=== PATIENT | female | born 1975 | race American Indian/Alaskan Native ===

== ENCOUNTER 2017-10-02 15:18 | Emergency (ER) | payer SELFPAY ==
[2017-10-02 15:19] VITALS: BMI 48.4
[2017-10-02 16:03] VITALS: BP 157/110; PULSE 80; RESP 16; TEMP 98; O2SAT 100
--- NOTE | 2017-10-02 16:38 | ED PDOC ---
Arrival/HPI - General Chief Complaint: Lower Extremity Problem/Injury Time Seen by Provider: 10/02/17 15:33 Historian: Patient - History of Present Illness Narrative History of Present Illness (Text): 10/02/17 16:35 41yr old female presents today with a 2 month history of left 5th toe pain. pt states she jammed her toe about 2 months ago and has been having pain ever since. no fever/chills. denies numbness, weakness, tingling in the extremity. pt states "it doesnt look swollen or red, but it hurts". no medications taken for pain at home. no other complaints. Time/Duration: > month (2 months) Symptom Course: Unchanged Quality: Throbbing Severity Level: 5 Past Medical History - Provider Review Nursing Documentation Reviewed: Yes - Travel History Have you recently traveled outside [place] w/in the past 3 mons?: No - Infectious Disease Hx of Infectious Diseases: None - Tetanus Immunization Tetanus Immunization: Unknown - Past Medical History Past Medical History: No Previous - Cardiac Hx Cardiac Disorders: Yes Hx Hypertension: Yes - Pulmonary Hx Respiratory Disorders: No - Neurological Hx Neurological Disorder: Yes Hx Vertigo: Yes - HEENT Hx HEENT Disorder: No - Renal Hx Renal Disorder: No - Endocrine/Metabolic Hx Endocrine Disorders: No - Hematological/Oncological Hx Blood Disorders: No - Integumentary Hx Dermatological Disorder: No - Musculoskeletal/Rheumatological Hx Musculoskeletal Disorders: No - Gastrointestinal Hx Gastrointestinal Disorders: No - Genitourinary/Gynecological Hx Genitourinary Disorders: No - Psychiatric Hx Psychophysiologic Disorder: No Hx Substance Use: No - Past Surgical History Past Surgical History: No Previous - Surgical History Hx Section: Yes Hx Cholecystectomy: Yes Hx Hysterectomy: Yes (partial) Other/Comment: right oophorectomy - Anesthesia Hx Anesthesia: Yes Hx Anesthesia Reactions: No Hx Malignant Hyperthermia: No - Suicidal Assessment Feels Threatened In Home Enviroment: No Family/Social History - Physician Review Nursing Documentation Reviewed: Yes Family/Social History: Unknown Family HX Smoking Status: Light Smoker < 10 Cigarettes Daily Hx Alcohol Use: No Hx Substance Use: No Hx Substance Use Treatment: No Allergies/Home Meds Allergies/Adverse Reactions: Allergies No Known Allergies Allergy (Verified 10/02/17 16:00) Home Medications: Home Meds Medication Instructions Recorded Confirmed No Known Home Med 10/02/17 10/02/17 Review of Systems - Review of Systems Constitutional: absent: Fatigue, Fevers Respiratory: absent: SOB, Cough Cardiovascular: absent: Chest Pain, Palpitations Gastrointestinal: absent: Abdominal Pain, Nausea, Vomiting Musculoskeletal: Arthralgias Skin: absent: Rash, Pruritis Neurological: absent: Headache, Dizziness Psychiatric: absent: Anxiety, Depression Physical Exam Vital Signs Reviewed: Yes Vital Signs Temp Pulse Resp BP Pulse Ox 10/02/17 16:03 98.0 F 80 16 157/110 H 100 Temperature: Afebrile Blood Pressure: Hypertensive Pulse: Regular Respiratory Rate: Normal Appearance: Positive for: Well-Appearing, Non-Toxic, Comfortable Pain Distress: None Mental Status: Positive for: Alert and Oriented X 3 - Systems Exam Head: Present: Atraumatic Neck: Present: Normal Range of Motion Respiratory/Chest: Present: Clear to Auscultation, Good Air Exchange. No: Respiratory Distress, Accessory Muscle Use Cardiovascular: Present: Regular Rate and Rhythm, Normal S1, S2. No: Murmurs Lower Extremity: Present: NORMAL PULSES, Normal ROM, Tenderness (left foot; + ttp over 5th toe; no edema, no erythema; no ecchymosis; full rom of foot/toes. flat foot; cap refill <2. no dorsal foot tenderness. ), Neurovascularly Intact, Capillary Refill < 2 s. No: CALF TENDERNESS, Swelling, Erythema, Deformity, Temperature Abnormalties Neurological: Present: GCS=15, Speech Normal Skin: Present: Warm, Dry, Normal Color. No: Rashes Psychiatric: Present: Alert, Oriented x 3 Medical Decision Making ED Course and Treatment: 10/02/17 16:38 Patient is nontoxic well-appearing in no distress pt with hx of htn with elevated bp in er. XRAY TOE; ? fx middle phalanx 5th toe pt refused medications for pain. ELTON TAPE TOE I discussed all results in depth with the patient and advised follow-up with the primary care physician/orthopedist/deployment specialist within the next 2 days. I advised immediate return if symptoms worsen or persist or if new concerning symptoms develop. pt advised to f/u with PMD regarding elevated BP. Patient verbalizes understanding of discharge instructions and need for immediate followup. all aspects of this case were discussed the attending of record. IMPRESSION; FRACTURE, TOE tylenol every 4 hours as needed for pain Follow up with primary care physician within the next 2 days Follow up with the orthopedist/deployment specialist within the next 2 days Return if symptoms worsen persist or if new symptoms develop - RAD Interpretation Radiology Orders: 10/02/17 16:21 FOOT LEFT 5TH DIGIT (TOE) [RAD] Stat Disposition/Present on Arrival - Present on Arrival Any Indicators Present on Arrival: No History of DVT/PE: No History of Uncontrolled Diabetes: No Urinary Catheter: No History of Decub. Ulcer: No History Surgical Site Infection Following: None - Disposition Have Diagnosis and Disposition been Completed?: Yes Diagnosis: Fracture of toe Disposition: HOME/ ROUTINE Disposition Time: 16:59 Patient Plan: Discharge Patient Problems: Current Active Problems Problem Status Onset Fracture of toe Acute Condition: GOOD Discharge Instructions (ExitCare): Toe Fracture (ED) Additional Instructions: tylenol every 4 hours as needed for pain Follow up with primary care physician within the next 2 days Follow up with the orthopedist/deployment specialist within the next 2 days Return if symptoms worsen persist or if new symptoms develop follow up with your primary care physician regarding your elevated blood pressure. Referrals: Grady Cervantes MD [Primary Care Provider] - Follow up with primary Valentino Kimble DPM [Staff Provider] - Follow up with primary Lorin Snyder DPM [Staff Provider] - Follow up with primary Forms: [employer] (Slovenian), WORK NOTE
--- NOTE | 2017-10-02 18:13 | RAD ---
PROCEDURE: Radiographs of the left fifth digit. TECHNIQUE:: AP radiograph of the left foot, with oblique and lateral view of the left 5th digit. COMPARISON: None. FINDINGS: BONES: There is no acute displaced fracture or bone destruction. Bone alignment and mineralization are normal. JOINTS: Normal. SOFT TISSUES: Normal. OTHER FINDINGS: None. IMPRESSION: No acute displaced fracture or dislocation.
== END 2017-10-02 17:31 | disposition home or self-care (01) ==
LOC: ED 15:18
DX: S92.502A Displaced unspecified fracture of left lesser toe(s), initial encounter for closed fracture (principal); W23.0XXA Caught, crushed, jammed, or pinched between moving objects, initial encounter; Y92.9 Unspecified place or not applicable

== ENCOUNTER 2018-03-10 11:10 | Emergency (ER) | payer OTHER ==
[2018-03-10 11:58] VITALS: BMI 47.4
[2018-03-10 12:23] VITALS: RESP 18; O2SAT 100
--- NOTE | 2018-03-10 13:27 | ED PDOC ---
Arrival/HPI - General Chief Complaint: Back Pain Time Seen by Provider: 03/10/18 12:48 Historian: Patient - History of Present Illness Narrative History of Present Illness (Text): 03/10/18 13:22 A 42 year old female presents to the emergency department complaining of neck pain on both right and left side for 1 week. Patient describes the pain as a shooting pain, worse with movement of the neck. pt states she woke up with the pain 1 week ago and the pain has been gradually worsening. pt states when the pain started, she thought she had just slept on it wrong. She notes taking Alleve and using heating pads, with mild relief. pt is c/o occasional numbness sensation in the left hand. Patient denies any recent trauma, injuries, fever, chills, nausea, vomiting, abdominal pain, urinary symptoms, chest pain, shortness of breath or any other complaints. Time/Duration: 1 week Symptom Course: Worsening (since yesterday) Quality: Other (shooting) Context: Home Past Medical History - Provider Review Nursing Documentation Reviewed: Yes - Travel History Have you recently traveled outside [place] w/in the past 3 mons?: No - Infectious Disease Hx of Infectious Diseases: None - Tetanus Immunization Tetanus Immunization: Unknown - Past Medical History Past Medical History: No Previous - Cardiac Hx Cardiac Disorders: Yes Hx Hypertension: Yes - Pulmonary Hx Respiratory Disorders: No - Neurological Hx Neurological Disorder: Yes Hx Vertigo: Yes - HEENT Hx HEENT Disorder: No - Renal Hx Renal Disorder: No - Endocrine/Metabolic Hx Endocrine Disorders: No - Hematological/Oncological Hx Blood Disorders: No - Integumentary Hx Dermatological Disorder: No - Musculoskeletal/Rheumatological Hx Musculoskeletal Disorders: No - Gastrointestinal Hx Gastrointestinal Disorders: No - Genitourinary/Gynecological Hx Genitourinary Disorders: No - Psychiatric Hx Psychophysiologic Disorder: No Hx Substance Use: No - Past Surgical History Past Surgical History: No Previous - Surgical History Hx Section: Yes Hx Cholecystectomy: Yes Hx Hysterectomy: Yes (partial) Other/Comment: right oophorectomy - Anesthesia Hx Anesthesia: Yes Hx Anesthesia Reactions: No Hx Malignant Hyperthermia: No - Suicidal Assessment Feels Threatened In Home Enviroment: No Family/Social History - Physician Review Nursing Documentation Reviewed: Yes Family/Social History: No Known Family HX Smoking Status: Light Smoker < 10 Cigarettes Daily Hx Alcohol Use: No Hx Substance Use: No Hx Substance Use Treatment: No Allergies/Home Meds Allergies/Adverse Reactions: Allergies No Known Allergies Allergy (Verified 03/10/18 12:00) Review of Systems - Physician Review All systems were reviewed & negative as marked: Yes - Review of Systems Constitutional: absent: Fevers, Night Sweats Respiratory: absent: SOB, Cough Cardiovascular: absent: Chest Pain, Palpitations, Syncope Gastrointestinal: absent: Abdominal Pain, Nausea, Vomiting Genitourinary Female: absent: Dysuria, Frequency, Hematuria Musculoskeletal: Neck Pain, Other. absent: Back Pain Skin: absent: Rash, Pruritis Neurological: absent: Headache, Dizziness Psychiatric: absent: Anxiety, Depression Physical Exam Vital Signs Reviewed: Yes Vital Signs Temp Pulse Resp BP Pulse Ox 03/10/18 12:21 97.7 F 57 L 18 141/57 L 100 Temperature: Afebrile Blood Pressure: Hypertensive Pulse: Bradycardic Respiratory Rate: Normal Appearance: Positive for: Well-Appearing, Non-Toxic, Comfortable Pain Distress: None Mental Status: Positive for: Alert and Oriented X 3 - Systems Exam Head: Present: Atraumatic, Normocephalic Extroacular Muscles: Present: EOMI Conjunctiva: Present: Normal Mouth: Present: Moist Mucous Membranes Neck: Present: Normal Range of Motion, MIDLINE TENDERNESS (mild cervical midline tenderness), Paraspinal Tenderness (bilateral cerival paraspinal tenderness), Trachea Midline, Other (Bilateral trapezius tenderness). No: Lymphadenopathy Respiratory/Chest: Present: Clear to Auscultation, Good Air Exchange. No: Respiratory Distress, Accessory Muscle Use Cardiovascular: Present: Regular Rate and Rhythm, Normal S1, S2. No: Murmurs Abdomen: Present: Normal Bowel Sounds Back: Present: Normal Inspection. No: CVA Tenderness, Midline Tenderness, Paraspinal Tenderness Upper Extremity: Present: Normal Inspection, Normal ROM, NORMAL PULSES (distal pulses intact), Neurovascularly Intact, Capillary Refill < 2s, Other (Strength 5 /5. No edema or ecchymosis.). No: Cyanosis, Edema, Tenderness, Swelling, Erythema, Temperature Abnormalties Lower Extremity: Present: Normal Inspection, Normal ROM. No: Edema Neurological: Present: GCS=15, Speech Normal, Motor Func Grossly Intact, Normal Sensory Function Skin: Present: Warm, Dry, Normal Color. No: Rashes Psychiatric: Present: Alert, Oriented x 3 Medical Decision Making ED Course and Treatment: 03/10/18 13:22 Impression: A 42 year old female with 1 week hx of bilateral neck pain. Woke up in the morning with pain 1 week ago. Plan: -- Cervical spine CT -- Valium and Toradol -- Reassess and disposition Progress Notes: ct c-spine; FINDINGS: VERTEBRAE: No fracture. Normal alignment. No destructive bony lesion. DISCS/SPINAL CANAL/NEURAL FORAMINA: No significant central canal or neural foraminal stenosis. Discs heights are grossly preserved. PARASPINAL SOFT TISSUES: Unremarkable. OTHER FINDINGS: None. IMPRESSION: Unremarkable CT of the cervical spine. 03/10/18 15:14 pt reassessment; pt is non toxic well appearing; no distress; feeling much better after medications; full rom of all extremities. denies numbness. i discussed all results in depth. advised f/u with pmd and orthopedist. i advised immediate return if symptoms worsen,persist or if new symptoms develop. Patient verbalizes understanding of discharge instructions and need for immediate followup. all aspects of this case were discussed the attending of record. impression; neck pain, strain Motrin every 6 hours as needed for pain Valium; one tablet every 8 hours as needed for muscle spasms: May cause drowsiness Followup with the orthopedist within the next 2 days Followup with primary care physician within the next 2 days Return if symptoms worsen persist or if new symptoms develop Reassessment Condition: Re-examined, Improved - RAD Interpretation Radiology Orders: 03/10/18 13:25 CERVICAL SPINE W/O CONTRAST [CT] Stat - Medication Orders Current Medication Orders: Discontinued Medications Diazepam (Valium) 5 mg PO ONCE ONE Stop: 03/10/18 13:26 Last Admin: 03/10/18 14:14 Dose: 5 mg Ketorolac Tromethamine (Toradol) 60 mg IM STAT STA Stop: 03/10/18 13:26 Last Admin: 03/10/18 14:14 Dose: 60 mg [facility] Pain Assessment [place] 03/10/18 14:[place] [facility] [place]: 03/10/18 14:14 [facility] [id number][place] Pain Reassessment Is this a pain reassessment? No Sleep Is patient sleeping during reassessment? No Presence of Pain Presence of Pain Yes Pain Scale Used Pain Scale Used Numeric Location Left, Right or Bilateral Bilateral Pain Location Body Site Shoulder Description Intensity of Pain at present 5 IM Administration Charges Document 03/10/18 14:14 [facility] [place]Rec[place] 03/10/18 14:14 [facility] [id number][place] Charges for Administration # of IM Administrations 1 - Scribe Statement The provider has reviewed the documentation as recorded by the Scribe Stefany Gonsales Provider Scribe Attestation: All medical record entries made by the Scribe were at my direction and personally dictated by me. I have reviewed the chart and agree that the record accurately reflects my personal performance of the history, physical exam, medical decision making, and the department course for this patient. I have also personally directed, reviewed, and agree with the discharge instructions and disposition. Disposition/Present on Arrival - Present on Arrival Any Indicators Present on Arrival: No History of DVT/PE: No History of Uncontrolled Diabetes: No Urinary Catheter: No History of Decub. Ulcer: No History Surgical Site Infection Following: None - Disposition Have Diagnosis and Disposition been Completed?: Yes Diagnosis: Neck pain Disposition: HOME/ ROUTINE Disposition Time: 15:16 Patient Plan: Discharge Condition: GOOD Discharge Instructions (ExitCare): Neck Pain Additional Instructions: Motrin every 6 hours as needed for pain Valium; one tablet every 8 hours as needed for muscle spasms: May cause drowsiness Followup with the orthopedist within the next 2 days Followup with primary care physician within the next 2 days Return if symptoms worsen persist or if new symptoms develop Prescriptions: diaZEpam [Valium] 2 mg PO Q8H PRN #6 tab PRN Reason: muscle spasms Ibuprofen [Motrin] 600 mg PO Q6H PRN #20 tab PRN Reason: pain/fever reduction Referrals: Anibal Blake MD [Staff Provider] - Follow up with primary Qasim Biswas III, MD [Medical Doctor] - Follow up with primary Forms: [employer] ([place]an), WORK NOTE
--- NOTE | 2018-03-10 13:57 | CT ---
PROCEDURE: CT Cervical Spine without contrast HISTORY: neck pain COMPARISON: None available. TECHNIQUE: Axial computed tomography images were obtained of the cervical spine without the use of intravenous contrast. Coronal and sagittal reformatted images were created and reviewed. Radiation dose: Total exam DLP = 861 mGy-cm. This CT exam was performed using one or more of the following dose reduction techniques: Automated exposure control, adjustment of the mA and/or kV according to patient size, and/or use of iterative reconstruction technique. FINDINGS: VERTEBRAE: No fracture. Normal alignment. No destructive bony lesion. DISCS/SPINAL CANAL/NEURAL FORAMINA: No significant central canal or neural foraminal stenosis. Discs heights are grossly preserved. PARASPINAL SOFT TISSUES: Unremarkable. OTHER FINDINGS: None. IMPRESSION: Unremarkable CT of the cervical spine.
[2018-03-10 15:43] VITALS: BP 142/88; PULSE 60; TEMP 98
== END 2018-03-10 15:42 | disposition home or self-care (01) ==
LOC: ED 11:10
DX: M54.2 Cervicalgia (principal); I10 Essential (primary) hypertension; F17.210 Nicotine dependence, cigarettes, uncomplicated
CPT/HCPCS: 72125; 96372; 99283; J1885

== ENCOUNTER 2018-07-14 10:26 | Emergency (ER) | payer OTHER ==
[2018-07-14 10:27] VITALS: BMI 47.4
--- NOTE | 2018-07-14 11:00 | ED PDOC ---
Arrival/HPI - General Time Seen by Provider: 07/14/18 10:28 Historian: Patient - History of Present Illness Narrative History of Present Illness (Text): 07/14/18 10:58 A 42 year old female, whose past medical history includes hypertension (non- compliant with medications), presents to the emergency department complaining of hypertension and headache. Patient reports in triage blood pressure was measured to be 163/116. Patient denies any chest pain, or any other complaints at this time. PMD: Dr. Cervantes (although patient states she has not seen him in a while). Past Medical History - Provider Review Nursing Documentation Reviewed: Yes - Infectious Disease Hx of Infectious Diseases: None - Tetanus Immunization Tetanus Immunization: Unknown - Past Medical History Past Medical History: No Previous - Cardiac Hx Cardiac Disorders: Yes Hx Hypertension: Yes - Pulmonary Hx Respiratory Disorders: No - Neurological Hx Neurological Disorder: Yes Hx Vertigo: Yes - HEENT Hx HEENT Disorder: No - Renal Hx Renal Disorder: No - Endocrine/Metabolic Hx Endocrine Disorders: No - Hematological/Oncological Hx Blood Disorders: No - Integumentary Hx Dermatological Disorder: No - Musculoskeletal/Rheumatological Hx Musculoskeletal Disorders: No - Gastrointestinal Hx Gastrointestinal Disorders: No - Genitourinary/Gynecological Hx Genitourinary Disorders: No - Psychiatric Hx Psychophysiologic Disorder: No Hx Substance Use: No - Past Surgical History Past Surgical History: No Previous - Surgical History Hx Section: Yes Hx Cholecystectomy: Yes Hx Hysterectomy: Yes (partial) Other/Comment: right oophorectomy - Anesthesia Hx Anesthesia: Yes Hx Anesthesia Reactions: No Hx Malignant Hyperthermia: No - Suicidal Assessment Feels Threatened In Home Enviroment: No Family/Social History - Physician Review Nursing Documentation Reviewed: Yes Family/Social History: No Known Family HX Smoking Status: Light Smoker < 10 Cigarettes Daily Hx Alcohol Use: No Hx Substance Use: No Hx Substance Use Treatment: No Allergies/Home Meds Allergies/Adverse Reactions: Allergies No Known Allergies Allergy (Verified 07/14/18 11:02) Home Medications: Home Meds Medication Instructions Recorded Confirmed No Known Home Med 07/14/18 07/14/18 Review of Systems - Physician Review All systems were reviewed & negative as marked: Yes - Review of Systems Cardiovascular: absent: Chest Pain Neurological: Headache Physical Exam Vital Signs Reviewed: Yes Vital Signs Temp Pulse Resp BP Pulse Ox 07/14/18 14:32 98.3 F 59 L 16 150/94 H 99 07/14/18 14:00 98.2 F 59 L 16 150/94 H 99 07/14/18 11:30 98.3 F 67 17 148/96 H 100 Temperature: Afebrile Blood Pressure: Normal Pulse: Regular Respiratory Rate: Normal Appearance: Positive for: Well-Appearing, Non-Toxic, Comfortable Pain Distress: None Mental Status: Positive for: Alert and Oriented X 3 - Systems Exam Head: Present: Atraumatic, Normocephalic Pupils: Present: PERRL Extroacular Muscles: Present: EOMI Conjunctiva: Present: Normal Mouth: Present: Moist Mucous Membranes Neck: Present: Normal Range of Motion Respiratory/Chest: Present: Clear to Auscultation, Good Air Exchange. No: Respiratory Distress, Accessory Muscle Use Cardiovascular: Present: Regular Rate and Rhythm, Normal S1, S2. No: Murmurs Abdomen: No: Tenderness, Distention, Peritoneal Signs Back: Present: Normal Inspection Upper Extremity: Present: Normal Inspection. No: Cyanosis, Edema Lower Extremity: Present: Normal Inspection. No: Edema Neurological: Present: GCS=15, CN II-XII Intact, Speech Normal Skin: Present: Warm, Dry, Normal Color. No: Rashes Psychiatric: Present: Alert, Oriented x 3, Normal Insight, Normal Concentration Medical Decision Making ED Course and Treatment: 07/14/18 11:00 Impression: 42 year old female with hypertension and headache. No acute findings on physical examination suspect essential htn r/o urgency vs emergency . Plan: -- EKG -- Labs -- Head CT -- Tylenol -- Urinalysis -- Reassess and disposition Prior Visits: Patient was last seen here in the emergency department on 2017 for neck pain right/left side. Patient was discharged home. Progress Notes: EKG: Ordered, reviewed, and independently interpreted the EKG. Rate : 72 BPM Rhythm : NSR Interpretation : No ST-segment elevations or depressions, no T-wave inversions, normal intervals. Comparison : No previous EKG for comparison. 07/14/2018 13:[address] IMPRESSION: No acute intracranial abnormality. Dictator: Nohelia Block MD 07/14/18 17:[address] pain resovle.d pt neuro intact. asking for dc. observed in nad. - Lab Interpretations Lab Results: 07/14/18 11:20 07/14/18 11:20 Lab Results 07/14/18 11:20: Urine Color Yellow, Urine Appearance Clear, Urine pH 5.5, Ur Specific [place] >= 1.030, Urine Protein Trace H, Urine Glucose (UA) Negative, Urine Ketones Negative, Urine Blood Negative, Urine Nitrate Negative, Urine Bilirubin Negative, Urine Urobilinogen 0.2, Ur Leukocyte Esterase Negative, Urine RBC 0 - 2, Urine WBC 0 - 2, Ur Epithelial Cells 6 - 8, Urine Bacteria Many , Urine HCG, Qual Negative 07/14/18 11:20: PT 12.0, INR 1.04, APTT 36.5 07/14/18 11:20: WBC 7.0, RBC 4.27, Hgb 11.1 L, Hct 34.6 L, MCV 81.0, MCH 26.0, MCHC 32.1, RDW 16.1 H, Plt Count 300, MPV 10.6, Gran % 52.2, Lymph % (Auto) 40.5 H, Izard % (Auto) 6.0, Eos % (Auto) 1.0 L, Baso % (Auto) 0.3, Gran # 3.65, Lymph # (Auto) 2.8, Izard # (Auto) 0.4, Eos # (Auto) 0.1, Baso # (Auto) 0.02 07/14/18 11:20: Sodium 139, Potassium 4.4, Chloride 105, Carbon Dioxide 27, Anion Gap 12, BUN 10, Creatinine 0.7, Est GFR ( Amer) > 60, Est GFR (Non- Af Amer) > 60, Random Glucose 90, Calcium 9.2, Magnesium 1.9, Total Bilirubin 0.4, AST 23, ALT 24, Alkaline Phosphatase 56, Lactate Dehydrogenase 440, Total Creatine Kinase 118, Troponin I < 0.01, Total Protein 7.3, Albumin 4.3, Globulin 3.0, Albumin/Globulin Ratio 1.4 I have reviewed the lab results: Yes - RAD Interpretation Radiology Orders: 07/14/18 10:57 HEAD W/O CONTRAST [CT] Stat - Medication Orders Current Medication Orders: Discontinued Medications Acetaminophen (Tylenol 325mg Tab) 975 mg PO STAT STA Stop: 07/14/18 10:58 Last Admin: 07/14/18 11:41 Dose: 975 mg MAR Pain/Vitals Document 07/14/18 11:41 [facility] [place] (Rec: 07/14/18 11:41 [facility] [id number]) Pain Reassessment Is This A Pain ReAssessment? No Sleep Is patient sleeping during reassessment? No Presence of Pain Presence of Pain Yes Pain Scale Used Pain Scale Used Numeric Location Pain Location Body Tomographic Tech Description Constant Intensity 10 - Scribe Statement The provider has reviewed the documentation as recorded by the Winsome Rivero Provider Scribe Attestation: All medical record entries made by the Scribe were at my direction and personally dictated by me. I have reviewed the chart and agree that the record accurately reflects my personal performance of the history, physical exam, medical decision making, and the department course for this patient. I have also personally directed, reviewed, and agree with the discharge instructions and disposition. Disposition/Present on Arrival - Present on Arrival Any Indicators Present on Arrival: No History of DVT/PE: No History of Uncontrolled Diabetes: No Urinary Catheter: No History Surgical Site Infection Following: None - Disposition Have Diagnosis and Disposition been Completed?: Yes Diagnosis: High blood pressure, Headache Disposition: HOME/ ROUTINE Disposition Time: 02:30 Condition: STABLE Discharge Instructions (ExitCare): High Blood Pressure in Adults, Headache, Adult Additional Instructions: please follow up with your doctor/clinic. return to er with worsening symptosm or concerns. you may need medication started as an outpatient. return to any er with any concern. Referrals: [facility] [Outside] - Follow up with primary [facility] at [facility] [place] [Outside] - Follow up with primary Forms: [employer] (Cuban)
[2018-07-14 11:50] LABS: BASO # 0.02 K/mm3 (0.0-2.0); BASO % 0.3 % (0.0-3.0); EOS # 0.1 (0.0-0.7); GRAN # 3.65 (1.4-6.5); GRAN % 52.2 % (50.0-68.0); HEMOGLOBIN 11.1 g/dL (12.0-16.0); LYMPH # 2.8 (1.2-3.4); LYMPH % 40.5 % (22.0-35.0); MEAN CORPUSCULAR HGB CONC 32.1 g/dl (31.0-37.0); MEAN PLATELET VOLUME 10.6 fl (7.0-11.0); MONO # 0.4 (0.1-0.6); PH,URINE 5.5 (4.7-8.0); RBC 4.27 10^6/uL (3.5-6.1); RED CELL DISTRIBUTION WIDTH 16.1 % (11.5-14.5); URINE BILIRUBIN NEGATIVE (NEGATIVE); URINE BLOOD NEGATIVE (NEGATIVE); URINE GLUCOSE (UA) NEGATIVE (NEGATIVE); URINE LEUKOCYTE ESTERASE NEGATIVE Leu/uL (NEGATIVE); URINE PROTEIN TRACE mg/dL (<30 mg/dL); URINE UROBILINOGEN 0.2 E.U./dL (<1 E.U./dL)
[2018-07-14 11:51] LABS: HCG,QUALITATIVE URINE NEGATIVE (NEGATIVE); URINE APPEARANCE CLEAR (CLEAR); URINE COLOR YELLOW (YELLOW)
[2018-07-14 11:56] LABS: ALB/GLOB RATIO 1.4 (1.1-1.8); ALBUMIN 4.3 g/dL (3.0-4.8); ALT/SGPT 24 U/L (7-56); AST/SGOT 23 U/L (14-36); BLOOD UREA NITROGEN 10 mg/dL (7-21); CALCIUM 9.2 mg/dL (8.4-10.5); GFR NON-AFRICAN AMERICAN > 60
[2018-07-14 11:59] LABS: URINE BACTERIA MANY (NEG); URINE RBC 0 - 2 /hpf (0-2); URINE WBC 0 - 2 /hpf (0-6)
[2018-07-14 12:07] LABS: TROPONIN I < 0.01 ng/mL
[2018-07-14 12:53] LABS: INR 1.04; PARTIAL THROMBOPLASTIN TIME 36.5 Seconds (25.1-36.5)
--- NOTE | 2018-07-14 13:31 | CT ---
Date of service: 07/14/2018 PROCEDURE: CT HEAD WITHOUT CONTRAST. HISTORY: Headache COMPARISON: 02/03/2015. TECHNIQUE: Axial computed tomography images were obtained through the head/brain without intravenous contrast. Radiation dose: Total exam DLP = 914.25 mGy-cm. This CT exam was performed using one or more of the following dose reduction techniques: Automated exposure control, adjustment of the mA and/or kV according to patient size, and/or use of iterative reconstruction technique. FINDINGS: HEMORRHAGE: No intracranial hemorrhage. BRAIN: Proctor-white matter differentiation is preserved. There is no mass, mass effect or abnormal extra-axial fluid collection. There is no territorial infarction. The midline sagittal structures are normal. VENTRICLES: The ventricles are normal in size, shape and configuration. CALVARIUM: The skull base and calvarium are normal. PARANASAL SINUSES: Predominantly clear. MASTOID AIR CELLS: Predominantly clear. OTHER FINDINGS: None. IMPRESSION: No acute intracranial abnormality.
[2018-07-14 14:30] VITALS: BP 150/94; PULSE 59; RESP 16; O2SAT 99
[2018-07-14 14:33] VITALS: TEMP 98.3
--- NOTE | 2018-07-15 14:04 | CARD ---
APPROVED REPORT Date of service: 07/14/2018 EKG Measurement Heart [id number] <Conclusion> Normal sinus rhythm Nonspecific T wave abnormality Abnormal ECG
== END 2018-07-14 15:00 | disposition home or self-care (01) ==
LOC: ED 10:26
DX: I10 Essential (primary) hypertension (principal); R51 Headache; F17.210 Nicotine dependence, cigarettes, uncomplicated

== ENCOUNTER 2018-11-10 11:36 | Emergency (ER) | payer OTHER ==
[2018-11-10 12:01] VITALS: BMI 43.5
[2018-11-10 12:04] VITALS: RESP 18; TEMP 98; O2SAT 100
[2018-11-10 14:00] VITALS: BP 148/85; PULSE 69
--- NOTE | 2018-11-10 14:25 | RAD ---
Date of service: 11/10/2018 PROCEDURE: Radiographs of the Left Shoulder HISTORY: shoulder pain and numbness. No history of trauma COMPARISON: No prior. FINDINGS: BONES: Normal. No fracture. JOINTS: Normal. Glenohumeral and acromioclavicular joints preserved. No osteoarthritis. SOFT TISSUES: Normal. OTHER FINDINGS: None. IMPRESSION: Normal radiographs of the left shoulder.
--- NOTE | 2018-11-10 14:26 | RAD ---
Date of service: 11/10/2018 PROCEDURE: Radiographs of the left elbow. HISTORY: elbow pain COMPARISON: No prior. FINDINGS: BONES: Normal. No fracture. JOINTS: Normal. No osteoarthritis. SOFT TISSUES: Normal. JOINT EFFUSION: None. OTHER FINDINGS: None IMPRESSION: Unremarkable radiographs of the left elbow.
--- NOTE | 2018-11-10 14:26 | RAD ---
Date of service: 11/10/2018 PROCEDURE: Left Wrist Radiographs. HISTORY: wrist pain COMPARISON: None. FINDINGS: BONES: Normal. No fracture. JOINTS: Normal. No dislocation. SOFT TISSUES: Normal. OTHER FINDINGS: None. IMPRESSION: Normal left wrist radiographs.
--- NOTE | 2018-11-10 14:37 | ED PDOC ---
Arrival/HPI - General Chief Complaint: Upper Extremity Problem/Injury Time Seen by Provider: 11/10/18 12:07 Historian: Patient - History of Present Illness Narrative History of Present Illness (Text): 11/10/18 14:33 42yo female with past medical history of hypertension who present with complaint of left arm pain x one week. States pain was localized from her left wrist to her elbow for few days and it started radiating to her shoulder today. Reports pain with holding anything. Denies chest pain, SOB, focal weakness, paresthesia, trauma, swelling, redness, any other complaint. Past Medical History - Provider Review Nursing Documentation Reviewed: Yes - Infectious Disease Hx of Infectious Diseases: None - Tetanus Immunization Tetanus Immunization: Unknown - Past Medical History Past Medical History: No Previous - Cardiac Hx Cardiac Disorders: Yes Hx Hypertension: Yes - Pulmonary Hx Respiratory Disorders: No - Neurological Hx Neurological Disorder: Yes Hx Vertigo: Yes - HEENT Hx HEENT Disorder: No - Renal Hx Renal Disorder: No - Endocrine/Metabolic Hx Endocrine Disorders: No - Hematological/Oncological Hx Blood Disorders: No - Integumentary Hx Dermatological Disorder: No - Musculoskeletal/Rheumatological Hx Musculoskeletal Disorders: No - Gastrointestinal Hx Gastrointestinal Disorders: No - Genitourinary/Gynecological Hx Genitourinary Disorders: No - Psychiatric Hx Psychophysiologic Disorder: No Hx Substance Use: No - Past Surgical History Past Surgical History: No Previous - Surgical History Hx Section: Yes Hx Cholecystectomy: Yes Hx Hysterectomy: Yes (partial) Other/Comment: right oophorectomy - Anesthesia Hx Anesthesia: Yes Hx Anesthesia Reactions: No Hx Malignant Hyperthermia: No - Suicidal Assessment Feels Threatened In Home Enviroment: No Family/Social History - Physician Review Nursing Documentation Reviewed: Yes Family/Social History: Unknown Family HX Smoking Status: Light Smoker < 10 Cigarettes Daily Hx Alcohol Use: No Hx Substance Use: No Hx Substance Use Treatment: No Allergies/Home Meds Allergies/Adverse Reactions: Allergies No Known Allergies Allergy (Verified 07/14/18 11:02) Review of Systems - Physician Review All systems were reviewed & negative as marked: Yes - Review of Systems Constitutional: Normal Eyes: Normal ENT: Normal Respiratory: Normal Cardiovascular: Normal Gastrointestinal: Normal Genitourinary Female: Normal Musculoskeletal: Arthralgias (LEft arm pain) Skin: Normal Neurological: Normal Endocrine: Normal Hemo/Lymphatic: Normal Psychiatric: Normal Physical Exam Vital Signs Reviewed: Yes Vital Signs Temp Pulse Resp BP Pulse Ox 11/10/18 13:59 69 18 148/85 100 11/10/18 12:03 98.0 F 67 18 153/95 H 100 Temperature: Afebrile Blood Pressure: Normal Pulse: Regular Respiratory Rate: Normal Appearance: Positive for: Well-Appearing, Non-Toxic, Comfortable Pain Distress: None Mental Status: Positive for: Alert and Oriented X 3 - Systems Exam Head: Present: Atraumatic, Normocephalic Pupils: Present: PERRL Extroacular Muscles: Present: EOMI Conjunctiva: Present: Normal Mouth: Present: Moist Mucous Membranes Neck: Present: Normal Range of Motion Respiratory/Chest: Present: Clear to Auscultation, Good Air Exchange. No: Respiratory Distress, Accessory Muscle Use Cardiovascular: Present: Regular Rate and Rhythm, Normal S1, S2. No: Murmurs Abdomen: No: Tenderness, Distention, Peritoneal Signs Back: Present: Normal Inspection Upper Extremity: Present: Normal ROM, NORMAL PULSES, Tenderness (Over left wrist and elbow), Neurovascularly Intact, Capillary Refill < 2s, Other (+Phanel/tinnel test). No: Cyanosis, Edema, Swelling, Erythema Lower Extremity: Present: Normal Inspection. No: Edema Neurological: Present: GCS=15, CN II-XII Intact, Speech Normal Skin: Present: Warm, Dry, Normal Color. No: Rashes Psychiatric: Present: Alert, Oriented x 3, Normal Insight, Normal Concentration Medical Decision Making ED Course and Treatment: 11/10/18 20:29 PT in emergency department for stated history. Left shoulder/elbow/wrist xray - No acute finding Wrist brace applied Result was DW the pt and she was DC home with Naprosyn - RAD Interpretation Radiology Orders: 11/10/18 12:23 ELBOW LEFT 3 VIEWS ROUTINE [RAD] Stat SHOULDER LEFT [RAD] Stat 11/10/18 12:24 WRIST, LEFT 3 VIEWS [RAD] Stat - Medication Orders Current Medication Orders: Discontinued Medications Ketorolac Tromethamine (Toradol) 60 mg IM STAT STA Stop: 11/10/18 12:25 Last Admin: 11/10/18 13:04 Dose: 60 mg MIRE[place]LE Pain Assessment Document 11/10/18 13:04 [place] (Rec: 11/10/18 13:04 LA [id number]) Pain Reassessment Is this a pain reassessment? No Sleep Is patient sleeping during reassessment? No Presence of Pain Presence of Pain Yes IM Administration Charges Document 11/10/18 13:04 JENNIFER (Rec: 11/10/18 13:04 JENNIFER [id number]) Injection Site MAR Injection Site Left Gluteus Shahbaz Charges for Administration # of IM Administrations 1 Disposition/Present on Arrival - Present on Arrival Any Indicators Present on Arrival: No History of DVT/PE: No History of Uncontrolled Diabetes: No Urinary Catheter: No History of Decub. Ulcer: No History Surgical Site Infection Following: None - Disposition Have Diagnosis and Disposition been Completed?: Yes Diagnosis: Arm pain Disposition: HOME/ ROUTINE Disposition Time: 14:40 Patient Plan: Discharge Condition: STABLE Discharge Instructions (ExitCare): Carpal Tunnel Syndrome, Acute Pain, Adult (DC) Additional Instructions: Follow up with your Doctor/Orthopedist Return to emergency department for any new o worsening symptoms Prescriptions: Naproxen [Naprosyn] 500 mg PO BID #20 tab Referrals: Rachel Rahman MD [Staff Provider] - Follow up with primary Renate Gerardo MD [Staff Provider] - Follow up with primary Forms: [employer] (Jordanian), WORK NOTE
== END 2018-11-10 15:00 | disposition home or self-care (01) ==
LOC: ED 11:36
DX: M79.602 Pain in left arm (principal); I10 Essential (primary) hypertension; F17.210 Nicotine dependence, cigarettes, uncomplicated
CPT/HCPCS: 73030; 73080; 73110; 81025; 96372; 99284; J1885

== ENCOUNTER 2019-02-19 10:44 | Emergency (ER) | payer OTHER ==
[2019-02-19 10:47] VITALS: BMI 47.4
[2019-02-19] MEDS ORDERED: Sodium Chloride 0.9% 1,000 ML IV STA (11:14)
--- NOTE | 2019-02-19 11:37 | ED PDOC ---
Arrival/HPI - General Chief Complaint: High Blood Pressure Historian: Patient - History of Present Illness Narrative History of Present Illness (Text): 02/19/19 11:33 Jennifer Hudson is a 43 year old female, with a past medical history of hypertension (on norvasc), sent to the emergency department by [facility] complaining of dizziness since a couple hours ago. Patient informs of poor concentration and loss of focus. Patient also notes nausea and headache. Patient informs going to work and feeling symptoms; blood pressure read 180 systolic at [facility]. Patient has not taken norvasc for over a year. Patient denies fevers, night sweats, vision changes, dizziness, shortness of breath, cough, chest pain, syncopal episode, abdominal pain, diarrhea, vomiting, dysuria, hematuria, back pain, jaw pain, neck pain, rash, diaphoresis, or any other complaint. PMD: Dr. Cervantes; last visit over 3 years ago Time/Duration: 4-6 hours Symptom Onset: Sudden Activities at Onset: Light Context: Work Past Medical History - Provider Review Nursing Documentation Reviewed: Yes Primary Care Physician: Grady Cervantes MD - Infectious Disease Hx of Infectious Diseases: None - Tetanus Immunization Tetanus Immunization: Unknown - Past Medical History Past Medical History: No Previous - Cardiac Hx Cardiac Disorders: Yes Hx Hypertension: Yes - Pulmonary Hx Respiratory Disorders: No - Neurological Hx Neurological Disorder: Yes Hx Vertigo: Yes - HEENT Hx HEENT Disorder: No - Renal Hx Renal Disorder: No - Endocrine/Metabolic Hx Endocrine Disorders: No - Hematological/Oncological Hx Blood Disorders: No - Integumentary Hx Dermatological Disorder: No - Musculoskeletal/Rheumatological Hx Musculoskeletal Disorders: No - Gastrointestinal Hx Gastrointestinal Disorders: No - Genitourinary/Gynecological Hx Genitourinary Disorders: No - Psychiatric Hx Psychophysiologic Disorder: No Hx Substance Use: No - Past Surgical History Past Surgical History: No Previous - Surgical History Hx Section: Yes Hx Cholecystectomy: Yes Hx Hysterectomy: Yes (partial) Other/Comment: right oophorectomy - Anesthesia Hx Anesthesia: Yes Hx Anesthesia Reactions: No Hx Malignant Hyperthermia: No - Suicidal Assessment Feels Threatened In Home Enviroment: No Family/Social History - Physician Review Nursing Documentation Reviewed: Yes Family/Social History: Unknown Family HX Smoking Status: Light Smoker < 10 Cigarettes Daily Hx Alcohol Use: No Hx Substance Use: No Hx Substance Use Treatment: No Allergies/Home Meds Allergies/Adverse Reactions: Allergies No Known Allergies Allergy (Verified 02/19/19 10:52) Home Medications: Home Meds Medication Instructions Recorded Confirmed amLODIPine [Norvasc] 10 mg PO DAILY 02/19/19 02/19/19 Review of Systems - Physician Review All systems were reviewed & negative as marked: Yes - Review of Systems Constitutional: Other (poor concentration; loss of focus). absent: Fevers, Night Sweats ENT: absent: TMJ Pain Respiratory: absent: SOB, Cough Cardiovascular: absent: Chest Pain, Syncope Gastrointestinal: Nausea. absent: Abdominal Pain, Diarrhea, Vomiting Genitourinary Female: absent: Dysuria, Hematuria Musculoskeletal: absent: Back Pain, Neck Pain Skin: absent: Rash Neurological: Headache. absent: Dizziness Endocrine: absent: Diaphoresis Physical Exam Vital Signs Reviewed: Yes Vital Signs Temp Pulse Resp BP Pulse Ox 02/19/19 10:45 98 F 60 18 140/90 98 Temperature: Afebrile Blood Pressure: Normal Pulse: Regular Respiratory Rate: Normal Appearance: Positive for: Well-Appearing, Non-Toxic, Comfortable Pain Distress: None Mental Status: Positive for: Alert and Oriented X 3 - Systems Exam Head: Present: Atraumatic, Normocephalic Pupils: Present: PERRL Extroacular Muscles: Present: EOMI Conjunctiva: Present: Normal Mouth: Present: Moist Mucous Membranes Neck: Present: Normal Range of Motion Respiratory/Chest: Present: Clear to Auscultation, Good Air Exchange. No: Respiratory Distress, Accessory Muscle Use, Wheezes, Rales, Rhonchi Cardiovascular: Present: Regular Rate and Rhythm, Normal S1, S2. No: Murmurs, Rub, Gallop Abdomen: Present: Normal Bowel Sounds. No: Tenderness, Distention, Peritoneal Signs, Rebound, Guarding Back: Present: Normal Inspection Upper Extremity: Present: Normal Inspection, Normal ROM, NORMAL PULSES, Neurovascularly Intact, Capillary Refill < 2s. No: Cyanosis, Edema Lower Extremity: Present: Normal Inspection, NORMAL PULSES, Normal ROM, Neurovascularly Intact, Capillary Refill < 2 s. No: Edema Neurological: Present: GCS=15, CN II-XII Intact, Speech Normal, Motor Func Grossly Intact, Normal Sensory Function Skin: Present: Warm, Dry, Normal Color. No: Rashes Psychiatric: Present: Alert, Oriented x 3, Normal Insight, Normal Concentration Medical Decision Making ED Course and Treatment: 02/19/19 11:33 Impression: 43 year old female with a history of hypertension sent to the emergency department by [employer] for dizziness a couple hours ago. Plan: -- Labs -- EKG -- Chest X-Ray -- Norvasc --Hydralazine --Clonidine -- Reglan -- IV Fluids -- POC Urine Test -- Urinalysis -- Reassess and disposition Prior Visits: Notes and results from previous visits were reviewed. Progress Notes: 02/19/19 13:06 Labs reviewed with slight anemia. Blood pressure 199/100 after Norvasc. Hydralazine ordered. 02/19/19 15:55 Repeat blood pressure noted to be 160/104. UA pending. Clonidine ordered. 02/19/19 17:13 Blood pressure noted to be 164/100. Patient advised to stay for observation, but refuses and is willing to sign out AMA. She is aware of the risks of signing out against complete medical recommendation and not continuing her treatment. - Lab Interpretations Lab Results: 02/19/19 12:00 02/19/19 12:00 Lab Results 02/19/19 12:00: Free T4 1.03, TSH 3rd Generation 0.72 02/19/19 12:00: Sodium 138, Potassium 4.2, Chloride 103, Carbon Dioxide 29, Anion Gap 11, BUN 11, Creatinine 0.6 L, Est GFR ( Amer) > 60, Est GFR (Non-Af Amer) > 60, Random Glucose 82, Calcium 9.1, Phosphorus 4.5, Magnesium 1.8, Total Bilirubin 0.4, AST 25, ALT 23, Alkaline Phosphatase 49, Troponin I < 0.01, NT-Pro-B Natriuret Pep 69.8, Total Protein 7.4, Albumin 4.1, Globulin 3.3, Albumin/Globulin Ratio 1.2 02/19/19 12:00: WBC 7.2, RBC 4.34, Hgb 11.2 L, Hct 35.2 L, MCV 81.1, MCH 25.8, MCHC 31.8, RDW 15.8 H, Plt Count 277, MPV 10.3, Neut % (Auto) 49.2 L, Lymph % (Auto) 43.1 H, [place] % (Auto) 6.3 H, Eos % (Auto) 1.1 L, Baso % (Auto) 0.3, Lymph # (Auto) 3.1, [place] # (Auto) 0.5, Eos # (Auto) 0.1, Baso # (Auto) 0.02, Absolute Neuts (auto) 3.54 I have reviewed the lab results: Yes - RAD Interpretation Radiology Orders: 02/19/19 10:51 CHEST ONE VIEW [RAD] Stat - EKG Interpretation EKG Interpretation (Text): 02/19/19 11:33 Reviewed EKG, shows: Sinus Bradycardia at [address] elevations. No T wave inversions. Interpreted by ED Physician: Yes Type: 12 lead EKG - Medication Orders Current Medication Orders: Sodium Chloride (Sodium Chloride 0.9%) 1,000 mls @ 999 mls/hr IV .Q1H1M STA Stop: 02/19/19 12:14 Discontinued Medications Amlodipine Besylate (Norvasc) 10 mg PO STAT STA Stop: 02/19/19 11:08 Metoclopramide HCl (Reglan) 10 mg IVP STAT STA Stop: 02/19/19 10:53 - Scribe Statement The provider has reviewed the documentation as recorded by the Scribe Lamin Lord All medical record entries made by the Scribe were at my direction and personally dictated by me. I have reviewed the chart and agree that the record accurately reflects my personal performance of the history, physical exam, medical decision making, and the department course for this patient. I have also personally directed, reviewed, and agree with the discharge instructions and disposition. Disposition/Present on Arrival - Present on Arrival Any Indicators Present on Arrival: No History of DVT/PE: No History of Uncontrolled Diabetes: No Urinary Catheter: No History of Decub. Ulcer: No History Surgical Site Infection Following: None - Disposition Have Diagnosis and Disposition been Completed?: Yes Diagnosis: Hypertensive urgency Disposition: AGAINST MEDICAL ADVICE Disposition Time: 17:22 Patient Problems: Current Active Problems Problem Status Onset Hypertensive urgency Acute Condition: FAIR Prescriptions: amLODIPine [Norvasc] 10 mg PO DAILY #30 tab Cephalexin [cephalexin] 500 mg PO BID 5 Days #10 cap Referrals: Grady Cervantes MD [Primary Care Provider] - Follow up with primary Forms: [employer] (Danish)
[2019-02-19 12:16] LABS: BASO # 0.02 K/mm3 (0.0-2.0); BASO % 0.3 % (0.0-3.0); EOS # 0.1 (0.0-0.7); EOS % 1.1 % (1.5-5.0); HEMOGLOBIN 11.2 g/dL (12.0-16.0); LYMPH # 3.1 (1.2-3.4); LYMPH % 43.1 % (22.0-35.0); MEAN CELL VOLUME 81.1 fl (80.0-105.0); MEAN CORPUSCULAR HEMOGLOBIN 25.8 pg (25.0-35.0); MEAN CORPUSCULAR HGB CONC 31.8 g/dl (31.0-37.0); MEAN PLATELET VOLUME 10.3 fl (7.0-11.0); MONO # 0.5 (0.1-0.6); MONO % 6.3 % (1.0-6.0); RBC 4.34 10^6/uL (3.5-6.1); RED CELL DISTRIBUTION WIDTH 15.8 % (11.5-14.5); WHITE BLOOD COUNT 7.2 10^3/uL (4.5-11.0)
[2019-02-19 12:26] LABS: ALB/GLOB RATIO 1.2 (1.1-1.8); ALBUMIN 4.1 g/dL (3.0-4.8); ALT/SGPT 23 U/L (7-56); AST/SGOT 25 U/L (14-36); BLOOD UREA NITROGEN 11 mg/dL (7-21); CALCIUM 9.1 mg/dL (8.4-10.5); GFR NON-AFRICAN AMERICAN > 60
[2019-02-19 12:37] LABS: B-TYPE NATRIURETIC PEPTIDE 69.8 pg/mL (0-450); TROPONIN I < 0.01 ng/mL
[2019-02-19 12:40] LABS: FREE T4 1.03 ng/dL (0.78-2.19)
[2019-02-19 15:44] VITALS: TEMP 98
[2019-02-19 16:01] LABS: PH,URINE 5.5 (4.7-8.0); URINE BILIRUBIN NEGATIVE (NEGATIVE); URINE BLOOD LARGE (NEGATIVE); URINE GLUCOSE (UA) NEGATIVE (NEGATIVE); URINE LEUKOCYTE ESTERASE TRACE Leu/uL (NEGATIVE); URINE PROTEIN 100 mg/dL (<30 mg/dL); URINE UROBILINOGEN 0.2 E.U./dL (<1 E.U./dL)
[2019-02-19 16:03] LABS: URINE APPEARANCE CLOUDY (CLEAR); URINE COLOR LIGHT RED (YELLOW)
[2019-02-19 16:32] LABS: URINE BACTERIA MANY /hpf; URINE RBC TNTC /hpf (0-2); URINE WBC TNTC /hpf (0-6)
--- NOTE | 2019-02-19 17:02 | RAD ---
Date of service: 02/19/2019 PROCEDURE: CHEST RADIOGRAPH, 1 VIEW HISTORY: Shortness of breath. Hypertension. COMPARISON: 12/18/2016. FINDINGS: LUNGS: Clear. PLEURA: No pneumothorax or pleural fluid seen. CARDIOVASCULAR: No aortic atherosclerotic calcification present. Normal. OSSEOUS STRUCTURES: No significant abnormalities. VISUALIZED UPPER ABDOMEN: Normal. OTHER FINDINGS: None. IMPRESSION: No active disease.No significant interval change compared to the prior examination(s).
--- NOTE | 2019-02-19 17:14 | CARD ---
APPROVED REPORT Date of service: 02/19/2019 EKG Measurement Heart [id number] <Conclusion> Poor data quality, interpretation may be adversely affected Sinus bradycardia Otherwise normal ECG
[2019-02-19 18:38] VITALS: BP 164/109; PULSE 62; RESP 18; O2SAT 98
== END 2019-02-19 17:18 | disposition left against medical advice (07) ==
LOC: ED 10:44
DX: I16.0 Hypertensive urgency (principal); F17.210 Nicotine dependence, cigarettes, uncomplicated
CPT/HCPCS: 71045; 80053; 81001; 83735; 83880; 84100; 84439; 84443; 84484; 85025; 93005; 96374; 96375; 99284; J0360; J2765; J7030